=== PATIENT | female | born 2000 | race Hispanic/Latino ===

== ENCOUNTER 2025-04-27 23:58 | Emergency (ER) | payer BC, OTHER ==
[2025-04-28] MEDS ORDERED: Dexamethasone 10 MG/ML VIAL ONE (01:20)
== END 2025-04-28 01:55 | disposition home or self-care (01) ==
LOC: CSHERS 23:58
DX: J04.0 Acute laryngitis (principal); J06.9 Acute upper respiratory infection, unspecified; B97.89 Other viral agents as the cause of diseases classified elsewhere
CPT/HCPCS: 71046; 87081; 87428; 87430; J1100